=== PATIENT | male | born 1960 | race Hispanic/Latino ===

== ENCOUNTER 2018-02-15 07:47 | Day surgery (SDC) | payer MEDICARE ==
[2018-02-11 14:30] VITALS: BMI 29.3
[2018-02-15 08:57] LABS: INR 1.11; PROTHROMBIN TIME 12.8 SECONDS (9.4-12.5)
[2018-02-15] MEDS ORDERED: Propofol 10 mg/ml Inj (20 ML) ONE (09:55)
[2018-02-15] MEDS ORDERED: Midazolam 2 MG/2 ML VIAL ONE (09:56)
[2018-02-15] MEDS ORDERED: Sodium Chloride 0.9% 1,000 ML IV SCH (11:15)
[2018-02-15 11:45] VITALS: O2SAT 98
[2018-02-15 14:15] VITALS: BP 113/66; PULSE 70; RESP 18; TEMP 97.9
== END 2018-02-15 13:06 | disposition home or self-care (01) ==
LOC: ENDO 07:47
PROVIDERS: ATTEND Internal Medicine Gastroenterology
DX: Z12.11 Encounter for screening for malignant neoplasm of colon (principal); K59.00 Constipation, unspecified; D12.0 Benign neoplasm of cecum; D12.5 Benign neoplasm of sigmoid colon; K57.30 Diverticulosis of large intestine without perforation or abscess without bleeding; K64.0 First degree hemorrhoids; Q43.8 Other specified congenital malformations of intestine; K62.5 Hemorrhage of anus and rectum; Z86.010 Personal history of colon polyps; Z85.841 Personal history of malignant neoplasm of brain; Z86.718 Personal history of other venous thrombosis and embolism; I10 Essential (primary) hypertension; Z86.73 Personal history of transient ischemic attack (TIA), and cerebral infarction without residual deficits; G47.30 Sleep apnea, unspecified; E78.00 Pure hypercholesterolemia, unspecified; Z98.49 Cataract extraction status, unspecified eye; Z88.1 Allergy status to other antibiotic agents; Z88.8 Allergy status to other drugs, medicaments and biological substances; Z79.01 Long term (current) use of anticoagulants
CPT/HCPCS: 36415; 45380; 45385; 85610; 88305; J2001; J2250; J2704; J3010; J7030; J7040

== ENCOUNTER → 2018-07-05 | Outpatient (CLI) | payer MEDICARE | LOC: RAD 13:38 ==